=== PATIENT | male | born 1955 | race Caucasian/White ===

== ENCOUNTER 2024-02-03 11:55 | Emergency (ER) | payer OTHER, SELFPAY ==
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
[2024-02-03 12:15] VITALS: BP 122/80; PULSE 104; O2SAT 100; BMI 22.0
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
[2024-02-03 12:43] VITALS: BP 130/92; PULSE 78; RESP 16; TEMP 37; O2SAT 96
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
[2024-02-03 14:56] VITALS: BP 125/98; PULSE 96; RESP 18; TEMP 36.9; O2SAT 98
== END 2024-02-03 14:58 | disposition home or self-care (01) ==
PROVIDERS: Emergency Provider Student in an Organized Health Care Education/Training Program
DX: S80.02XA Contusion of left knee, initial encounter (principal); M47.812 Spondylosis without myelopathy or radiculopathy, cervical region; V89.2XXA Person injured in unspecified motor-vehicle accident, traffic, initial encounter; Y93.9 Activity, unspecified; Y92.488 Other paved roadways as the place of occurrence of the external cause; Y99.9 Unspecified external cause status
CPT/HCPCS: 70450; 72125; 73564; 99284

== ENCOUNTER 2024-02-07 11:21 | Emergency (ER) | payer SELFPAY ==
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
[2024-02-07 11:31] VITALS: BP 113/79; PULSE 88; RESP 18; TEMP 36.6; O2SAT 98; BMI 21.3
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
--- NOTE | 2024-02-07 12:42 | PC.NURSE ---
PT WAS SEEN BY TRIAGE PROVIDER AND DISCHARGED
== END 2024-02-07 12:43 | disposition home or self-care (01) ==
LOC: HO.ED 12:37
PROVIDERS: Emergency Provider Emergency Medicine
DX: S16.1XXA Strain of muscle, fascia and tendon at neck level, initial encounter (principal); M54.2 Cervicalgia; V43.52XA Car driver injured in collision with other type car in traffic accident, initial encounter; Y93.9 Activity, unspecified; Y92.410 Unspecified street and highway as the place of occurrence of the external cause; Y99.8 Other external cause status
CPT/HCPCS: 72040; 99281; 99283